=== PATIENT | female | born 1955 | race Caucasian/White ===

== ENCOUNTER → 2017-09-12 08:19 | Outpatient (CLI) | payer BC, SELFPAY ==
[2017-09-12 10:19] LABS: Vitamin D,25 Hydroxy 36.2 ng/mL (29.95-100.01)
[2017-09-12 10:27] LABS: Anion Gap 6 (5-15); BUN 18 mg/dL (7-18); BUN/Creat Ratio 26.1 RATIO (10-20); Chloride 103 mmol/L (98-107); Cholesterol 201 mg/dL (200); Creatinine, Serum 0.69 mg/dL (0.55-1.02); EST Glomerular Filtration Rate 92 mL/min (>60); Est Glom Filt Rate - Afr Amer 111 mL/min (>60); Glucose 92 mg/dL (74-106); High Density Lipoprotein 56 mg/dL; Potassium 3.3 mmol/L (3.5-5.1); Sodium Level 142 mmol/L (136-145); Thyroid Stim Hormone (TSH) 3.43 uIU/mL (0.358-3.74); Triglycerides 111 mg/dL; Very Low Density Lipoprotein 22 mg/dL (5-40)
== END ==
PROVIDERS: Family Provider Family Medicine; PCP Family Medicine; Visit Provider Family Medicine
DX: I10 Essential (primary) hypertension (principal); E55.9 Vitamin D deficiency, unspecified; Z13.29 Encounter for screening for other suspected endocrine disorder
CPT/HCPCS: 36415; 80048; 80061; 82306; 84443

== ENCOUNTER → 2018-02-01 10:45 | Outpatient (CLI) | payer BC, SELFPAY ==
[2018-02-01 12:28] LABS: Absolute Lymphocyte Count 1.69 X10^3/ul (0.83-4.51); Absolute Neutrophil Count 2.9 X10^3/uL (2.0-7.7); Basophil# 0.04 X10^3/uL; Basophil% 0.8 % (0-1); Eosinophil# 0.14 X10^3/uL; Eosinophils% 2.7 % (0-5); Hematocrit 42.2 % (37-47); Hemoglobin 14.8 g/dl (12.0-15.0); Lymphocyte # 1.69 X10^3/ul (4.0); Lymphocyte % 32.7 % (19-41); Mean Corp Hgb Conc 35.1 g/gl (32-36); Mean Corpuscular Hgb 31.5 pg (27.0-32.0); Mean Corpuscular Volume 89.8 fL (81-99); Monocyte# 0.41 X10^3/uL; Monocyte% 7.9 % (0-10); Neutrophil # 2.88 X10^3/uL (2.7-7.7); Neutrophil % 55.7 % (47-70); Platelet Count 127 K/mm3 (150-450); RBC Distribution Width CV 12.3 % (11.6-14.6); RBC Distribution Width SD 39.7 fl (35.1-43.9); White Blood Count 5.2 K/mm3 (4.4-11.0)
[2018-02-01 12:33] LABS: POSITIVE COUNT NO; POSITIVE DIFFERENTIAL NO; POSITIVE MORPHOLOGY NO
[2018-02-01 12:50] LABS: Vitamin D,25 Hydroxy 35.1 ng/mL (29.95-100.01)
[2018-02-01 13:00] LABS: Anion Gap 10 (5-15); BUN 13 mg/dL (7-18); BUN/Creat Ratio 19.2 RATIO (10-20); Chloride 100 mmol/L (98-107); Cholesterol 220 mg/dL (200); Creatinine, Serum 0.68 mg/dL (0.55-1.02); EST Glomerular Filtration Rate 94 mL/min (>60); Est Glom Filt Rate - Afr Amer 113 mL/min (>60); Glucose 84 mg/dL (74-106); High Density Lipoprotein 50 mg/dL; Potassium 3.3 mmol/L (3.5-5.1); Sodium Level 140 mmol/L (136-145); Triglycerides 129 mg/dL; Very Low Density Lipoprotein 26 mg/dL (5-40)
== END ==
PROVIDERS: Family Provider Family Medicine; PCP Family Medicine; Visit Provider Family Medicine
DX: Z00.00 Encounter for general adult medical examination without abnormal findings (principal)
CPT/HCPCS: 36415; 80048; 80061; 82306; 85025

== ENCOUNTER → 2018-10-05 10:50 | Outpatient (CLI) | payer BC, SELFPAY ==
[2018-10-05 12:42] LABS: Anion Gap 5 (5-15); BUN 15 mg/dL (7-18); BUN/Creat Ratio 25.2 RATIO (10-20); Calcium,Total 8.7 mg/dL (8.5-10.1); Chloride 101 mmol/L (98-107); EST Glomerular Filtration Rate 109 mL/min (>60); Est Glom Filt Rate - Afr Amer 131 mL/min (>60); Glucose 86 mg/dL (74-106); Potassium 3.5 mmol/L (3.5-5.1); Sodium Level 138 mmol/L (136-145)
== END ==
PROVIDERS: Family Provider Family Medicine; PCP Family Medicine; Referring Provider Family Medicine; Visit Provider Family Medicine
DX: I10 Essential (primary) hypertension (principal)
CPT/HCPCS: 36415; 80048

== ENCOUNTER 2021-07-23 14:03 | Outpatient (CLI) | payer OTHER, SELFPAY ==
[2021-07-23 15:37] LABS: Vitamin D,25 Hydroxy 31.7 ng/mL
[2021-07-23 15:51] LABS: AST(SGOT) 25 U/L (15-37); Alanine Aminotransfer ALT/SGPT 31 U/L (13-56); Albumin, Serum 3.9 g/dL (3.2-5.0); Alkaline Phosphatase 91 U/L (45-117); Anion Gap 6 (5-15); BUN 22 mg/dL (7-18); BUN/Creat Ratio 31.5 RATIO (10-20); Calcium,Total 9.3 mg/dL (8.5-10.1); Chloride 100 mmol/L (98-107); Cholesterol 201 mg/dL (200); EST Glomerular Filtration Rate 90 mL/min (>60); Est Glom Filt Rate - Afr Amer 108 mL/min (>60); Globulin 3.9 g/dL (2.2-4.2); Glucose 82 mg/dL (74-106); High Density Lipoprotein 60 mg/dL; Potassium 3.1 mmol/L (3.5-5.1); Protein, Total 7.8 g/dL (6.4-8.2); Sodium Level 138 mmol/L (136-145); Thyroid Stim Hormone (TSH) 2.32 uIU/mL (0.358-3.74); Triglycerides 112 mg/dL; Very Low Density Lipoprotein 22 mg/dL (5-40)
== END 2021-07-23 23:59 | disposition home or self-care (01) ==
LOC: MFPLAB 14:07
PROVIDERS: PCP Family Medicine; Referring Provider Family Medicine; Visit Provider Family Medicine
DX: I10 Essential (primary) hypertension (principal); E55.9 Vitamin D deficiency, unspecified; Z13.29 Encounter for screening for other suspected endocrine disorder
CPT/HCPCS: 36415; 80053; 80061; 82306; 84443

== ENCOUNTER → 2022-09-28 | Outpatient (CLI) | payer MEDICARE, SELFPAY ==
[2022-09-28 12:57] LABS: Vitamin D,25 Hydroxy 70.4 ng/mL
[2022-09-28 13:15] LABS: Anion Gap 6 (5-15); BUN 21 mg/dL (7-18); BUN/Creat Ratio 33.5 RATIO (10-20); Calcium,Total 9.5 mg/dL (8.5-10.1); Chloride 103 mmol/L (98-107); Cholesterol 178 mg/dL (200); Creatinine, Serum 0.63 mg/dL (0.55-1.02); EST Glomerular Filtration Rate 101 mL/min (>60); Est Glom Filt Rate - Afr Amer 122 mL/min (>60); Glucose 91 mg/dL (74-106); High Density Lipoprotein 62 mg/dL; Potassium 3.3 mmol/L (3.5-5.1); Sodium Level 140 mmol/L (136-145); Triglycerides 63 mg/dL; Very Low Density Lipoprotein 13 mg/dL (5-40)
== END | disposition home or self-care (01) ==
LOC: MFPLAB 09:49
PROVIDERS: PCP Family Medicine; Visit Provider Family Medicine
DX: I10 Essential (primary) hypertension (principal); Z13.1 Encounter for screening for diabetes mellitus; E55.9 Vitamin D deficiency, unspecified; Z13.220 Encounter for screening for lipoid disorders
CPT/HCPCS: 36415; 80048; 80061; 82306

== ENCOUNTER → 2022-10-28 | Outpatient (CLI) | payer MEDICARE, SELFPAY ==
--- NOTE | 2022-10-28 09:53 | BI_ITS ---
MAMMOGRAPHY - BILATERAL SCREENING REASON FOR EXAM: Female, 67 years old. Routine annual screening examination. PERTINENT HISTORY: Non-contributory. TECHNIQUE: Digital bilateral breast elia (3D mammographic acquisition) in the CC and MLO projections. 2-D mediolateral oblique (MLO) and craniocaudad (CC) views of both breasts were obtained. CAD: Full Field Digital Mammography with Computer Added Detection was performed. COMPARISON: Comparison is made with prior abdomen examination dated December 18, 2019. FINDINGS: Breast Composition: The breasts are heterogeneously dense, which may obscure small masses. There are no dominant masses or suspicious calcifications. No other significant abnormalities are identified. There has been no significant change since the prior study. BI/SCRN MAMM (CAD)W/ELIA BILAT IMPRESSION: Stable bilateral screening mammogram. Yearly follow-up mammogram recommended. (A) ASSESSMENT CATEGORY: BIRADS Category 1: Negative. A letter regarding these results will be sent to the patient by the facility within 30 days. Approximately 10% of breast cancers are not detected by mammography. A normal mammogram should not delay biopsy of a clinically suspicious abnormality. [id number] Electronically Signed: Efrain Manuel MD at 15:34 EDT ,
--- NOTE | 2022-10-28 09:59 | BD_ITS ---
STUDY: DUAL ENERGY X-RAY ABSORPTIOMETRY / DXA REASON FOR EXAM: Female, 67 years old. [id number] TECHNIQUE: Bone Mineral Density (BMD) measurements of lumbar spine and bilateral hips were obtained. COMPARISON: None. FINDINGS: Lumbar Spine (L1-L4): g/cm2 (1.035) / T-score (-0.2) / Z-score (1.7) Findings are suggestive of normal bone density with a low fracture risk. Left Femur Total: g/cm2 (0.816) / T-score (-1.0) / Z-score (0.2) Left Femoral Neck: g/cm2 (0.722) / T-score (-1.1) / Z-score (0.4) Right Femur Total: g/cm2 (0.837) / T-score (-0.9) / Z-score (0.4) Right Femoral Neck: g/cm2 (0.760) / T-score (-0.8) / Z-score (0.8) BD/Dexa Bone Density Study IMPRESSION: The patient is considered osteopenic as outlined below according to World [employer] Organization (WHO) criteria with a low fracture risk. Reference Information: The T-score is the number of standard deviations above or below the standard which is normal for young adults at their peak bone mineral density. The World Health Organization (WHO) interprets the T-scores as follows: Above -1 Normal bone density Between -1 and -2.5 Osteopenia Equal to / or below -2.5 Osteoporosis As a practical clinical guideline, osteopenia may be graded as follows: Mild -1 through -1.5 Moderate -1.6 through -2.0 Severe -2.1 through -2.4 The Z-score is the number of standard deviations above or below age-matched controls. A Z-score of less than -1.5 would be considered abnormal. References: 1. NIH Osteoporosis and Related Bone Diseases www osteo.org 2. International Society for Clinical Densitometry www iscd.org 3. National Osteoporosis Foundation www nof.org Electronically Signed: Efrain Manuel MD at 11:02 EDT ,
== END | disposition home or self-care (01) ==
PROVIDERS: PCP Family Medicine; Referring Provider Family Medicine; Visit Provider Family Medicine
DX: Z12.31 Encounter for screening mammogram for malignant neoplasm of breast (principal); Z78.0 Asymptomatic menopausal state
CPT/HCPCS: 77063; 77067; 77080

== ENCOUNTER → 2022-11-15 | Outpatient (CLI) | payer MEDICARE, SELFPAY ==
--- NOTE | 2022-11-15 07:59 | AAAS_ITS ---
Reason For Study: SCREENING AAA Aorta Measurements Aorta Doppler Measurements Proximal aorta measures2.07 x 2.13cm. in cross- Peak systolic flow velocities within the proximal sectional axis. aorta measure 63.6 cm/sec. Proximal aorta measures1.95cm. in longitudinal Peak systolic flow velocities within the mid aorta axis. measure 57.9 cm/sec. Mid aorta measures1.98 x 1.71cm. in cross- Peak systolic flow velocities within the distal sectional axis. aorta measure 55.0 cm/sec. Mid aorta measures1.74cm. in longitudinal axis. Distal aorta measures1.5 x 1.5cm. in cross- sectional axis. Distal aorta measures1.51cm. in longitudinal axis. Left Iliac Artery Left iliac artery measures 1.1 x 1.0 cm. in the cross-sectional axis. Left iliac artery measures 0.96 cm. in the longitudinal axis. Peak systolic velocity in the left iliac artery measures 76.2 cm/sec. Right Iliac Artery Right iliac artery measures 1.1 x 0.98 cm. in the cross-sectional axis. Right iliac artery measures 0.96 cm. in the longitudinal axis. Peak systolic velocity in the right iliac artery measures 69.2 cm/sec. VL/AAA Screening Interpretation Summary Aorta patent, normal caliber Bilateral iliac arteries patent, normal caliber Ordering Physician: Emile Brown Referring Physician: Emile Brown Performed By: Nichole Ramos, RDCS, RVT
== END | disposition home or self-care (01) ==
LOC: CVS 07:55
PROVIDERS: PCP Family Medicine; Referring Provider Family Medicine; Visit Provider Family Medicine
DX: Z00.00 Encounter for general adult medical examination without abnormal findings (principal); Z13.6 Encounter for screening for cardiovascular disorders
CPT/HCPCS: 76706

== ENCOUNTER → 2024-10-30 | Outpatient (CLI) | payer MEDICARE, SELFPAY ==
--- NOTE | 2024-10-30 08:02 | BI_ITS ---
EXAM: SCRN MAMM (CAD)W/ELIA BILAT DATE: 10/30/2024 CLINICAL HISTORY: F, Age 69 y/o , SCREENING BREAST CANCER RISK ASSESSMENT: Na TECHNIQUE: Bilateral screening digital breast tomosynthesis with 2D and 3D images. Computer aided detection. COMPARISON: Prior exam(s) were compared FINDINGS: TISSUE DENSITY: The breast tissue is heterogenously dense, which may obscure small masses. Bilateral Breast Mammographic Findings: No suspicious masses, calcifications or other abnormalities are identified. BI/SCRN MAMM (CAD)W/ELIA BILAT IMPRESSION: OVERALL FINAL ASSESSMENT: BIRADS 1 NEGATIVE RECOMMENDATION: Routine annual follow-up in 1 Year A letter with findings and recommendations will be mailed to the patient. Reading Location: [id number]
--- NOTE | 2024-10-30 08:06 | BD_ITS ---
PROCEDURE: DEXA BONE DENSITY STUDY 10/30/2024 REASON FOR EXAM: F, age 69 y/o . TECHNIQUE: DXA scan of sites with data reported below. Scanner utilized: HoloPWA W. REFERENCE LINKS: [facility] COMPARISON: DEXA on 10/28/2022 FINDINGS: BMD and T-SCORES Lumbar spine: 1.041 g/cm2, T-score -0.1 Levels: L1, L3-L4 Change from prior: No significant change in BMD.. Left femoral neck: 0.722 g/cm2, T-score -1.1 Femoral neck comparison data not recommended for monitoring change. Prior T-score -1.1 Left total hip: 0.788 g/cm2, T-score -1.3 Change from prior: Statistically significant BMD decrease of 3.4%. Right femoral neck: 0.700 g/cm2, T-score -1.3 Femoral neck comparison data not recommended for monitoring change. Prior T-score -0.8 Right total hip: 0.802 g/cm2, T-score -1.1 Change from prior: Statistically significant BMD decrease of 4.1% The World Health Organization has defined the following categories based on bone density: Normal bone density: T-score equal to or greater than -1.0 Osteopenia: T-score between -1.0 and -2.5 Osteoporosis: T-score equal to or less than -2.5 FRAX (or Comparable) Fracture Risk Assessment: 10 Year Probability of Fracture: Major Osteoporotic Fracture: 9.3% Hip Fracture: 1.0% (Note: FRAX is not to be reported in setting of normal range bone density, osteoporosis on DEXA, known history of osteoporosis, prior osteoporotic hip or vertebral fracture, or for any patient undergoing pharmacological treatment for bone loss.) The National Osteoporosis Foundation (NOF) recommends pharmacological treatment for patients with a FRAX 10-year risk of 3% or higher for a hip fracture, or 20% or higher for a major osteoporotic fracture, to prevent osteoporosis and reduce fracture risk. The patient does not meet the pharmacological treatment recommendations for prevention of osteoporosis. BD/Dexa Bone Density Study IMPRESSION: OSTEOPENIA. Reading Location: [id number]
== END | disposition home or self-care (01) ==
PROVIDERS: PCP Family Medicine; Referring Provider Obstetrics & Gynecology; Visit Provider Obstetrics & Gynecology
DX: Z12.31 Encounter for screening mammogram for malignant neoplasm of breast (principal); Z13.820 Encounter for screening for osteoporosis; M81.0 Age-related osteoporosis without current pathological fracture
CPT/HCPCS: 77063; 77067; 77080